=== PATIENT | female | born 1955 | race Caucasian/White ===

== ENCOUNTER 2017-12-21 10:06 | Emergency (ER) | END 2017-12-21 13:20 | disposition home or self-care (01) ==

== ENCOUNTER 2018-08-15 01:03 | Emergency (ER) | payer SELFPAY ==
[~2018-08-15] VITALS: Wt 59.8 kg
[~2018-08-15 01:03] MED LIST: MECL12.574 PO
[2018-08-15 01:18] VITALS: BP 131/79; PULSE 85; RESP 18
== END 2018-08-15 05:56 | disposition left against medical advice (07) ==
LOC: E/R 01:03
DX: Z53.21 Procedure and treatment not carried out due to patient leaving prior to being seen by health care provider (principal)
CPT/HCPCS: 93005